=== PATIENT | female | born 1995 | race Caucasian/White ===

== ENCOUNTER 2021-10-17 20:43 | Emergency (ER) | payer OTHER ==
[~2021-10-17] VITALS: Ht 154.9 cm; Wt 65.8 kg
[~2021-10-17 20:43] MED LIST: ALBU0.0939 IH
[2021-10-17 20:48] VITALS: BP 136/85
[2021-10-17] MEDS ORDERED: SUCRALFATE 1 GM TAB PO SCH (21:30)
[2021-10-17] MEDS ORDERED: FAMO-90 PO (21:30)
[2021-10-17] MEDS ORDERED: ALUMINUM HYD/MAG/SIMETHICONE 30 ML UDC PO ONE (21:30)
[2021-10-17] MEDS ORDERED: ALUMINUM HYD/MAG/SIMETHICONE 30 ML UDC ONE (22:44)
--- NOTE | 2021-10-17 22:58 | NUR ---
pt bib self for chest pain x2 hours. pt states pain comes and goes and worsens with eating and swallowing. pt states she thinks that it may have been from drinking in [place]. pt has no history of heart attack or any pmh. pt drinks and smokes marijuana socially. took no meds to relieve pain. pmh:astma rx:none allergies: aspirin, advil ,Ibruprofen, amoxcillin. pt states she shakes and gets hivess
[2021-10-17 23:05] LABS: BASOPHILS % (AUTO) 0.3 % (0.0-2.0); EOSINOPHILS # (AUTO) 0.2 K/uL (0-0.4); EOSINOPHILS % (AUTO) 3.9 % (0.0-4.0); HEMATOCRIT 38.4 % (36-48); HEMOGLOBIN 13.1 g/dL (12.0-16.0); LYMPHOCYTES # (AUTO) 2.4 K/uL (2.5-16.5); LYMPHOCYTES % (AUTO) 50.9 % (20.5-51.1); MEAN CORPUSCULAR HEMOGLOBIN 32 pg (27-31); MEAN CORPUSCULAR HGB CONC 34 g/dL (33-37); MEAN CORPUSCULAR VOLUME 92.9 fL (80-94); MONOCYTES # (AUTO) 0.2 K/uL (0.8-1.0); MONOCYTES % (AUTO) 4.3 % (1.7-9.3); NEUTROPHILS # (AUTO) 1.9 K/uL (1.8-7.7); NEUTROPHILS % (AUTO) 40.6 % (42.2-75.2); PLATELET COUNT (AUTO) 320 K/uL (140-450); RED BLOOD CELL COUNT(AUTO) 4.13 MIL/uL (4.20-5.40); WHITE BLOOD COUNT (AUTO) 4.7 K/uL (4.8-10.8)
[2021-10-17 23:33] LABS: ANION GAP 13.6 (8-16); CARBON DIOXIDE 25.7 mmol/L (21-32); CHLORIDE 102 mmol/L (98-107); CREATININE 0.5 mg/dL (0.6-1.3); GFR ARICAN-AMERICAN 190 mL/min (>90); GLUCOSE 96 mg/dL (74-106); POTASSIUM 3.3 mmol/L (3.5-5.1); SODIUM SERUM 138 mmol/L (136-145); UREA NITROGEN, BLOOD 7 mg/dL (7-18)
[2021-10-17 23:34] LABS: ALBUMIN 4.2 g/dL (3.4-5.0); ASPARTATE AMINOTRANSFERASE 20 U/L (15-37); TOTAL BILIRUBIN 0.3 mg/dL (0.0-1.0)
[2021-10-17 23:35] LABS: LIPASE 91 U/L (73-393)
[2021-10-18 00:39] VITALS: BP 135/70
--- NOTE | 2021-10-18 00:39 | NUR ---
Patient discharged with v/s stable. Written and verbal after care instructions given and explained. Patient alert, oriented and verbalized understanding of instructions. Ambulatory with steady gait. All questions addressed prior to discharge. ID band removed. Patient advised to follow up with PMD. Rx of PEPCID given. Opportunity to ask questions provided and answered.
--- NOTE | 2021-10-18 06:40 | NUR ---
The patient's care was reviewed and supervised by Mary Grande RN.
== END 2021-10-18 00:39 | disposition home or self-care (01) ==
LOC: MED 20:43
DX: R07.9 Chest pain, unspecified (principal); R07.0 Pain in throat; J45.909 Unspecified asthma, uncomplicated; F41.9 Anxiety disorder, unspecified
CPT/HCPCS: 36415; 71045; 80053; 83690; 84484; 85025; 93005; 99285; Q0092

== ENCOUNTER 2022-05-24 20:23 | Emergency (ER) | payer OTHER ==
[~2022-05-24] VITALS: Ht 154.9 cm; Wt 64.9 kg
[~2022-05-24 20:23] MED LIST changes: +FAMO-90 PO
[2022-05-24 20:44] VITALS: BP 125/70
--- NOTE | 2022-05-24 20:48 | NUR ---
TO LOBBY A/W BED AMBULATORY
[2022-05-24 22:41] VITALS: BP 104/63
[2022-05-24] MEDS ORDERED: predniSONE 20 MG TAB PO ONE (23:55)
[2022-05-24] MEDS ORDERED: ALBUTEROL SULFATE/IPRATROPIU 3 ML SOL IH ONE (23:55)
[2022-05-24] MEDS ORDERED: ALBUTEROL 0.083% 2.5 MG/3 ML NEBU INH ONE (23:55)
--- NOTE | 2022-05-25 02:03 | NUR ---
PT CALLED IN LOBBY AND OUTSIDE WITH NO ANSWER. PT LWBS
== END 2022-05-25 02:03 | disposition left against medical advice (07) ==
LOC: MED 20:23
DX: R06.00 Dyspnea, unspecified (principal); R13.10 Dysphagia, unspecified; Z53.21 Procedure and treatment not carried out due to patient leaving prior to being seen by health care provider